=== PATIENT | male | born 1960 | race Caucasian/White ===

== ENCOUNTER 2017-01-31 07:36 | Observation (INO) | payer OTHER ==
[~2017-01-31] VITALS: Ht 177.8 cm; Wt 127.6 kg
[~2017-01-31 07:36] MED LIST: ADULT LOW DOSE81 M1 PO; ADVIL200 MG PO; ANTIBIOTIC PO; ANTIBIOTICS; ASPIR 8181 M1 PO; ATENOLOL25 M1 PO; ATENOLOL25 MG PO; CRESTOR10 MG PO; CRESTOR20 MG PO; Cipro PO; ENDOCET 5-3251 EACH PO; FLAGYL500 MG PO; FLORA-Q CAPSUL1 EACH PO; FLORASTOR250 MG PO; LACTINEX,FLO1 PACKET PO; LEVAQUIN500 MG PO; LEVOFLOXACIN750 MG PO; LISINOPRIL20 MG PO; LITE COAT ASPI325 M1 PO; LO-DOSE ASPIRIN81 M1 PO; MEDROL DOSEPAK4 MG PO; METRONIDAZOLE500 MG PO; NICOTINE PATCH1 EAC2 TD; NITROQUICK0.4 MG SL; NITROSTAT0.4 MG SL; PLAVIX75 MG PO; PREDNISONE10 MG PO; PROAIR HFA8.5 GM IH; PROTONIX40 MG PO; PROVENTIL,2.5 MG/3 M IH; PriLOSEC PO; Proventil,Ventolin H IH; SPIRIVA1 INHALATI IH; SYMBICORT60 INHALAT IH; TYLENOL EXTRA500 MG PO; Tenormin PO; Vancocin Oral Soluti PO; ZESTRIL,PRINIVI20 MG PO; Zestril,Prinivil PO
[2017-01-31 08:07] LABS: HEMATOCRIT 39.8 % (38.0-50.0); MCH 28.9 PG (29.0-34.0); MCHC 31.9 G/DL (30.0-36.0); MCV 90.7 FL (86-99); MEAN PLAT.VOLUME 10.1 uM^3 (9.0-12.4); PLATELET COUNT 184 K/uL (156-360); RBC DIS.WIDTH-CV 13.2 % (11.8-14.6); RBC DIS.WIDTH-SD 43.6 % (39-53); RED BLOOD COUNT 4.39 M/uL (4.00-5.50); WHITE BLOOD COUNT 9.1 K/uL (4.1-10.2)
[2017-01-31 08:34] LABS: ANION GAP 12 MEQ/L (2-14); CHLORIDE 103 MEQ/L (99-109); POTASSIUM 4.4 MEQ/L (3.7-5.4); SAMPLE HEMOLYSIS CHECK 0; SAMPLE ICTERIC CHECK 0; SAMPLE LIPEMIA CHECK 0; SODIUM 137 MEQ/L (136-147)
[2017-01-31 08:39] LABS: GFR ESTIMATE (CALCULATED) > 59 mL/min/; GLUCOSE 117 mg/dL (70-99); UREA NITROGEN (BUN) 15 mg/dL (9-23)
[2017-01-31 08:42] LABS: TROP-I INTERPRETATION NEGATIVE; TROPONIN-I 0.01 ng/mL (0.0-0.30)
[2017-01-31] MEDS ORDERED: CENTRUM SILVER1 EAC3 PO (10:19)
[2017-01-31] MEDS ORDERED: DALIRESP500 MCG PO (10:19)
[2017-01-31] MEDS ORDERED: ALBUTEROL2.5 MG/3 M IH (10:20)
[2017-01-31] MEDS ORDERED: WELLBUTRIN SR150 MG PO (10:20)
[2017-01-31] MEDS ORDERED: ALLEGRA ALLERG180 MG PO (10:21)
[2017-01-31] MEDS ORDERED: AZELASTINE137 MCG/0. BOTH NARES (10:21)
[2017-01-31 11:48] VITALS: BP 121/78
[2017-01-31 17:37] VITALS: BP 108/67
[2017-01-31 23:03] VITALS: BP 122/64
[2017-02-01 06:51] LABS: ANION GAP 7 MEQ/L (2-14); CHLORIDE 104 MEQ/L (99-109); GFR ESTIMATE (CALCULATED) > 59 mL/min/; GLUCOSE 129 mg/dL (70-99); POTASSIUM 4.4 MEQ/L (3.7-5.4); SAMPLE HEMOLYSIS CHECK 0; SAMPLE ICTERIC CHECK 0; SAMPLE LIPEMIA CHECK 0; SODIUM 136 MEQ/L (136-147); UREA NITROGEN (BUN) 12 mg/dL (9-23)
[2017-02-01 07:18] VITALS: BP 169/79
[2017-02-01] MEDS ORDERED: AUGMENTIN875 MG PO (10:48)
[2017-02-01] MEDS ORDERED: PREDNISONE10 MG PO (10:48)
[2017-02-01 16:25] VITALS: BP 141/84
== END 2017-02-01 16:32 | disposition home or self-care (01) ==
LOC: EME 07:36 → 5EAST 09:16
PROVIDERS: Internal Medicine; Nurse Practitioner Family
DX: J44.1 Chronic obstructive pulmonary disease with (acute) exacerbation (principal); J44.0 Chronic obstructive pulmonary disease with (acute) lower respiratory infection; J18.9 Pneumonia, unspecified organism; I10 Essential (primary) hypertension; G43.909 Migraine, unspecified, not intractable, without status migrainosus; F17.200 Nicotine dependence, unspecified, uncomplicated; E78.5 Hyperlipidemia, unspecified; I25.10 Atherosclerotic heart disease of native coronary artery without angina pectoris; E66.9 Obesity, unspecified; Z95.5 Presence of coronary angioplasty implant and graft
CPT/HCPCS: 71020; 71250; 80048; 84484; 85027; 87040; 87070; 87205; 93005; 94640; 94640 76; 94760; 94799; 99202; 99281; 99285; G0378; J0696; J1100; J1200; J1650; J1885; J2765; J2930; J7030; J7050

== ENCOUNTER 2017-09-16 05:32 | Day surgery (SDC) | payer OTHER ==
[~2017-09-16] VITALS: Ht 177.8 cm; Wt 138.6 kg
[~2017-09-16 05:32] MED LIST changes: +ALBUTEROL2.5 MG/3 M IH; +ALLEGRA ALLERG180 MG PO; +AUGMENTIN875 MG PO; +AZELASTINE137 MCG/0. BOTH NARES; +CENTRUM SILVER1 EAC3 PO; +DALIRESP500 MCG PO; +FLEXERIL10 MG PO; +ULTRAM50 MG PO; +WELLBUTRIN SR150 MG PO
[2017-09-16 06:31] VITALS: BP 134/79
[2017-09-16] MEDS ORDERED: SENNA PLUS TAB1 EACH PO (09:53)
[2017-09-16] MEDS ORDERED: DIAZEPAM10 MG PO (09:53)
[2017-09-16] MEDS ORDERED: OXYCODONE-APAP1 EACH PO (09:53)
[2017-09-16 11:49] VITALS: BP 107/63
[2017-09-16 15:59] VITALS: BP 131/74
[2017-09-16 19:36] VITALS: BP 113/59
[2017-09-16 23:38] VITALS: BP 132/63
[2017-09-17 08:17] VITALS: BP 111/67
== END 2017-09-17 10:48 | disposition home or self-care (01) ==
LOC: SDC 05:32 → 3EAST 09:45 → 2SOUTH 09:45 → ENRESERV 10:05 → SDC 10:07 → ENRESERV 10:45 → 3EAST 10:55 → SDC 15:51 → 3EAST 09-17 10:48
PROC: 0RG20A0 Fusion of 2 or more Cervical Vertebral Joints with Interbody Fusion Device, Anterior Approach, Anterior Column, Open Approach (ICD-10-PCS; principal; 2017-09-16)
DX: M47.22 Other spondylosis with radiculopathy, cervical region (principal); M47.12 Other spondylosis with myelopathy, cervical region; M50.20 Other cervical disc displacement, unspecified cervical region; I10 Essential (primary) hypertension; I25.10 Atherosclerotic heart disease of native coronary artery without angina pectoris; J44.9 Chronic obstructive pulmonary disease, unspecified; E78.5 Hyperlipidemia, unspecified; Z95.5 Presence of coronary angioplasty implant and graft; Z79.82 Long term (current) use of aspirin; Z79.02 Long term (current) use of antithrombotics/antiplatelets; Z88.1 Allergy status to other antibiotic agents; Z91.041 Radiographic dye allergy status
CPT/HCPCS: 72020; 76000; 93306; 94640; 94640 76; 94799; 99202; C1713; G0378; J0330; J0690; J1100; J2250; J2370; J2405; J3010; J3480

== ENCOUNTER 2018-02-21 08:46 | Emergency (ER) | payer OTHER ==
[~2018-02-21] VITALS: Ht 177.8 cm; Wt 134.8 kg
[~2018-02-21 08:46] MED LIST changes: +DIAZEPAM10 MG PO; +OXYCODONE-APAP1 EACH PO; +SENNA PLUS TAB1 EACH PO
[2018-02-21 09:48] LABS: HEMATOCRIT 36.1 % (38.0-50.0); MCH 29.1 PG (29.0-34.0); MCHC 33.2 G/DL (30.0-36.0); MCV 87.4 FL (86-99); PLATELET COUNT 135 K/uL (156-360); RBC DIS.WIDTH-CV 13.1 % (11.8-14.6); RBC DIS.WIDTH-SD 41.1 % (39-53); RED BLOOD COUNT 4.13 M/uL (4.00-5.50); WHITE BLOOD COUNT 4.4 K/uL (4.1-10.2)
[2018-02-21 09:58] LABS: ALBUMIN 3.9 g/dL (3.2-4.8); CHLORIDE 105 mEq/L (99-109); POTASSIUM 4.4 mEq/L (3.7-5.4); SODIUM 139 mEq/L (136-147)
[2018-02-21 10:01] LABS: GLUCOSE 120 mg/dL (70-99); TOTAL PROTEIN 6.7 g/dL (6.4-8.3)
[2018-02-21 10:03] LABS: TOTAL BILIRUBIN 0.6 mg/dL (0.0-1.0)
[2018-02-21 10:04] LABS: ALKALINE PHOSPHATASE 48 IU/L (3-129); CREATININE 0.7 mg/dL (0.6-1.3); GFR ESTIMATE (CALCULATED) > 59 mL/min/ (58.99-99999)
[2018-02-21 10:05] LABS: UREA NITROGEN (BUN) 11 mg/dL (9-23)
[2018-02-21 10:06] LABS: AST (GOT) 15 IU/L (2-34)
[2018-02-21 10:07] LABS: ALT (GPT) 19 IU/L (3-49)
[2018-02-21 11:07] VITALS: BP 120/83
== END 2018-02-21 11:08 | disposition home or self-care (01) ==
LOC: EME 08:46
PROVIDERS: Emergency Medicine Emergency Medical Services
DX: G43.909 Migraine, unspecified, not intractable, without status migrainosus (principal); J45.909 Unspecified asthma, uncomplicated; Z98.1 Arthrodesis status; Z79.51 Long term (current) use of inhaled steroids; Z79.82 Long term (current) use of aspirin; Z87.891 Personal history of nicotine dependence; Z87.19 Personal history of other diseases of the digestive system; Z88.8 Allergy status to other drugs, medicaments and biological substances; Z91.041 Radiographic dye allergy status
CPT/HCPCS: 70450; 80053; 85027; 99281; 99284; J0780